=== PATIENT | female | born 1980 | race Caucasian/White ===

== ENCOUNTER 2019-05-17 16:36 | Emergency (ER) | payer BC ==
[2019-05-17 17:43] LABS: ADD MAN DIFF? NO
[2019-05-17] MEDS: morphine 2 MG INJ IV (17:43)
[2019-05-17] MEDS: FAMOTIDINE 20 MG INJ IV (17:44)
[2019-05-17] MEDS: SOD CHLORIDE 0.9% 1,000 ML IV (17:44)
[2019-05-17] MEDS: ONDANSETRON 4 MG INJ IV (17:44)
[2019-05-17 17:45] LABS: BASOPHIL # 0.1 10^3/ul (0.0-0.1); BASOPHILS % 1.1 % (0.0-2.0); EOSINOPHILS # 0.1 10^3/ul (0.0-0.5); HEMATOCRIT 42.1 % (37.0-47.0); HEMOGLOBIN 14.3 g/dl (12.0-16.0); LYMPHOCYTES # 1.9 10^3/ul (0.8-2.9); MEAN CORPUSCULAR HEMOGLOBIN 29.8 pg (29.0-33.0); MEAN CORPUSCULAR VOLUME 87.7 fl (82.0-101.0); MEAN PLATELET VOLUME 10.8 fl (7.4-10.4); MONOCYTE # 0.4 10^3/ul (0.3-0.9); MONOCYTES % 9.1 % (0.0-11.0); NEUTROPHIL # 2.2 10^3/ul (1.6-7.5); NEUTROPHILS % 46.4 % (39.0-77.0); PLATELET COUNT 196 10^3/UL (140-415); RED CELL DISTRIBUTION WIDTH 12.1 % (11.5-14.5)
[2019-05-17 17:45] LABS: WHITE BLOOD COUNT 4.7 10^3/ul (4.8-10.8)
[2019-05-17 18:08] LABS: ADD UMIC NO; UR ASCORBIC ACID NEGATIVE (NEGATIVE); UR BILIRUBIN (Dip) NEGATIVE (NEGATIVE); UR BLOOD (Dip) NEGATIVE (NEGATIVE); UR CLARITY CLEAR (CLEAR); UR COLOR YELLOW (YELLOW); UR GLUCOSE (Dip) 3+ mg/dL (NEGATIVE); UR KETONES (Dip) NEGATIVE (NEGATIVE); UR LEUKOCYTE ESTERASE (Dip) NEGATIVE Leu/ul (NEGATIVE); UR NITRITE (Dip) NEGATIVE (NEGATIVE); UR SPECIFIC GRAVITY (Dip) 1.028 (1.003-1.030); UR TOTAL PROTEIN (Dip) NEGATIVE (NEGATIVE); UR UROBILINOGEN (Dip) NEGATIVE (NEGATIVE)
[2019-05-17 18:09] LABS: ALANINE AMINOTRANSFERASE 26 IU/L (13-69); ALBUMIN 3.9 g/dl (3.3-4.9); ALBUMIN/GLOBULIN RATIO 1.18; ALKALINE PHOSPHATASE 137 IU/L (42-121); ANION GAP 8 (5-13); ASPARTATE AMINO TRANSFERASE 23 IU/L (15-46); BILIRUBIN,INDIRECT 0.4 mg/dl (0-1.1); BILIRUBIN,TOTAL 0.4 mg/dl (0.2-1.3); BLOOD UREA NITROGEN 14 mg/dl (7-20); CARBON DIOXIDE 28 mmol/L (21-31); CHLORIDE 100 mmol/L (97-110); CREATININE 0.64 mg/dl (0.44-1.00); Estimated GFR > 60 mL/min (>60); GLUCOSE 298 mg/dl (70-220); LIPASE 74 U/L (23-300); POTASSIUM 3.9 mmol/L (3.5-5.1); SODIUM 136 mmol/L (135-144); TOTAL PROTEIN 7.2 g/dl (6.1-8.1)
[2019-05-17] MEDS: LIDOCAINE/MYLANTA 40 ML BTL PO (18:51)
== END 2019-05-17 19:06 | disposition home or self-care (01) ==
LOC: FTE 16:36
DX: R10.9 Unspecified abdominal pain (principal); I10 Essential (primary) hypertension; E11.9 Type 2 diabetes mellitus without complications; R11.2 Nausea with vomiting, unspecified; Z79.84 Long term (current) use of oral hypoglycemic drugs
CPT/HCPCS: 36415; 76705; 80053; 81003; 81025; 83690; 85025; 96374; 96375; 99285-25

== ENCOUNTER 2019-05-26 21:55 | Emergency (ER) | payer BC ==
[2019-05-26 23:47] LABS: URINE BLOOD (Dip) POC Negative (NEGATIVE); URINE KETONES (Dip) POC Negative (NEGATIVE); URINE LEUKOCYTE EST (Dip) POC 1+ (NEGATIVE); URINE NITRITE (Dip) POC Negative (NEGATIVE); URINE TOTAL PROTEIN POC Negative (NEGATIVE)
[2019-05-27] MEDS ORDERED: IOHEXOL 14.3 MG(I)/ML (ADULT) BTL PO
[2019-05-27] MEDS: KETOROLAC 30 MG INJ IM (00:27)
[2019-05-27] MEDS: SODIUM CHLORIDE 0.9% 1L BAG IV* (00:27)
[2019-05-27] MEDS: ONDANSETRON (ODT) 4 MG TAB ODT (00:27)
[2019-05-27 00:38] LABS: ADD MAN DIFF? NO
[2019-05-27 00:41] LABS: BASOPHILS % 0.8 % (0.0-2.0); EOSINOPHILS # 0.2 10^3/ul (0.0-0.5); EOSINOPHILS % 3.1 % (0.0-7.0); HEMATOCRIT 40.6 % (37.0-47.0); HEMOGLOBIN 14.1 g/dl (12.0-16.0); LYMPHOCYTES # 1.9 10^3/ul (0.8-2.9); LYMPHOCYTES % 40.6 % (15.0-51.0); MEAN CORPUSCULAR HEMOGLOBIN 30.5 pg (29.0-33.0); MEAN CORPUSCULAR HGB CONC 34.7 g/dl (32.0-37.0); MEAN CORPUSCULAR VOLUME 87.7 fl (82.0-101.0); MEAN PLATELET VOLUME 10.6 fl (7.4-10.4); MONOCYTE # 0.4 10^3/ul (0.3-0.9); MONOCYTES % 8.4 % (0.0-11.0); NEUTROPHIL # 2.2 10^3/ul (1.6-7.5); NEUTROPHILS % 46.9 % (39.0-77.0); PLATELET COUNT 226 10^3/UL (140-415); RED BLOOD COUNT 4.63 10^6/ul (4.20-5.40)
[2019-05-27 00:41] LABS: WHITE BLOOD COUNT 4.8 10^3/ul (4.8-10.8)
[2019-05-27] MEDS: LORAZEPAM 0.5 MG TAB PO (00:47)
[2019-05-27 00:51] LABS: ADD UMIC YES; UR ASCORBIC ACID NEGATIVE (NEGATIVE); UR BILIRUBIN (Dip) NEGATIVE (NEGATIVE); UR BLOOD (Dip) NEGATIVE (NEGATIVE); UR CLARITY SLIGHTLY CLOUDY (CLEAR); UR COLOR YELLOW (YELLOW); UR GLUCOSE (Dip) 3+ mg/dL (NEGATIVE); UR KETONES (Dip) NEGATIVE (NEGATIVE); UR LEUKOCYTE ESTERASE (Dip) 3+ Leu/ul (NEGATIVE); UR NITRITE (Dip) NEGATIVE (NEGATIVE); UR RBC 1 /HPF (0-5); UR SPECIFIC GRAVITY (Dip) 1.016 (1.003-1.030); UR SQUAMOUS EPITHELIAL CELL FEW /HPF (FEW); UR TOTAL PROTEIN (Dip) NEGATIVE (NEGATIVE); UR UROBILINOGEN (Dip) NEGATIVE (NEGATIVE); UR WBC 18 /HPF (0-5)
[2019-05-27 00:57] LABS: ALANINE AMINOTRANSFERASE 37 IU/L (13-69); ALBUMIN 4.4 g/dl (3.3-4.9); ALBUMIN/GLOBULIN RATIO 1.25; ALKALINE PHOSPHATASE 186 IU/L (42-121); ANION GAP 10 (5-13); ASPARTATE AMINO TRANSFERASE 30 IU/L (15-46); BILIRUBIN,INDIRECT 0.5 mg/dl (0-1.1); BILIRUBIN,TOTAL 0.5 mg/dl (0.2-1.3); BLOOD UREA NITROGEN 15 mg/dl (7-20); CALCIUM 9.6 mg/dl (8.4-10.2); CARBON DIOXIDE 29 mmol/L (21-31); CHLORIDE 103 mmol/L (97-110); CREATININE 0.59 mg/dl (0.44-1.00); Estimated GFR > 60 mL/min (>60); GLUCOSE 255 mg/dl (70-220); LIPASE 94 U/L (23-300); SODIUM 142 mmol/L (135-144); TOTAL PROTEIN 7.9 g/dl (6.1-8.1)
[2019-05-27] MEDS: IOHEXOL 300MG/ML 150 ML BTL (01:33)
[2019-05-27] MEDS: SOD CHLORIDE 0.9% 100 ML (01:33)
[2019-05-27] MEDS: morphine 2 MG INJ IV (01:52)
== END 2019-05-27 02:44 | disposition home or self-care (01) ==
LOC: FTE 21:55
DX: N39.0 Urinary tract infection, site not specified (principal)
CPT/HCPCS: 74177; 80053; 81001; 81003; 81025; 83690; 85025; 96372; 96374; 99285-25